=== PATIENT | male | born 1965 | race Caucasian/White ===

== ENCOUNTER 2016-06-04 22:47 | Emergency (ER) | payer OTHER ==
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
[2016-06-04 23:16] VITALS: BP 128/78; PULSE 72; TEMP 98.3; BMI 35.9
== END 2016-06-04 23:22 | disposition home or self-care (01) ==
LOC: FER 22:47
DX: S00.83XA Contusion of other part of head, initial encounter (principal); W50.0XXA Accidental hit or strike by another person, initial encounter; Y93.89 Activity, other specified; Y92.159 Unspecified place in reform school as the place of occurrence of the external cause; Y99.0 Civilian activity done for income or pay
CPT/HCPCS: 99281-25

== ENCOUNTER 2016-12-11 22:13 | Emergency (ER) | payer OTHER ==
[2016-12-11 22:21] VITALS: BP 127/91; PULSE 76; TEMP 98.7; BMI 32.1
[2016-12-11] MEDS ORDERED: IBUPROFEN 600 MG TABLET (FP) PO ONE ×2 (22:25→22:31)
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
== END 2016-12-11 22:44 | disposition home or self-care (01) ==
LOC: FER 22:13
DX: S89.91XA Unspecified injury of right lower leg, initial encounter (principal); X58.XXXA Exposure to other specified factors, initial encounter; Y92.159 Unspecified place in reform school as the place of occurrence of the external cause; Y99.0 Civilian activity done for income or pay
CPT/HCPCS: 73562-TC-RT; 99281-25

== ENCOUNTER 2017-06-05 14:59 | Emergency (ER) | payer SELFPAY ==
[2017-06-05 15:49] VITALS: BP 104/68; PULSE 67; TEMP 98; BMI 31.1
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
== END 2017-06-05 16:56 | disposition home or self-care (01) ==
LOC: FER 14:59
DX: M54.9 Dorsalgia, unspecified (principal); Y04.2XXA Assault by strike against or bumped into by another person, initial encounter; Y93.89 Activity, other specified; Y92.159 Unspecified place in reform school as the place of occurrence of the external cause; Y99.0 Civilian activity done for income or pay; E07.9 Disorder of thyroid, unspecified
CPT/HCPCS: 72050-TC-FY; 99282-25

== ENCOUNTER 2017-06-12 11:23 | Emergency (ER) | payer OTHER ==
[2017-06-12] MEDS ORDERED: IBUPROFEN 400 MG TABLET (FP) PO ONE ×2 (11:53→11:57)
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
[2017-06-12] MEDS ORDERED: LIDOCAINE HCL 1%, 10 MG/ML (20ML VIAL) ONE (12:25)
[2017-06-12 12:32] VITALS: BP 128/86; PULSE 105; TEMP 98.5; BMI 32.0
== END 2017-06-12 13:27 | disposition home or self-care (01) ==
LOC: FER 11:23
PROC: 0RSXXZZ Reposition Left Finger Phalangeal Joint, External Approach (ICD-10-PCS; principal; 2017-06-12)
DX: S63.257A Unspecified dislocation of left little finger, initial encounter (principal); X58.XXXA Exposure to other specified factors, initial encounter; Y93.89 Activity, other specified; Y92.9 Unspecified place or not applicable
CPT/HCPCS: 73140-TC-LT-FY; 99281-25

== ENCOUNTER 2017-07-08 08:51 | Emergency (ER) | payer OTHER ==
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
[2017-07-08] MEDS ORDERED: IBUPROFEN 400 MG TABLET (FP) PO ONE ×2 (09:04→09:09)
[2017-07-08 09:06] VITALS: BP 124/77; PULSE 65; TEMP 98.3; BMI 32.1
== END 2017-07-08 09:51 | disposition home or self-care (01) ==
LOC: FER 08:51
PROC: 2W3KX1Z Immobilization of Left Finger using Splint (ICD-10-PCS; principal; 2017-07-08)
DX: S61.237A Puncture wound without foreign body of left little finger without damage to nail, initial encounter (principal); W22.8XXA Striking against or struck by other objects, initial encounter; Y93.89 Activity, other specified; Y92.219 Unspecified school as the place of occurrence of the external cause; Y99.0 Civilian activity done for income or pay; E07.9 Disorder of thyroid, unspecified
CPT/HCPCS: 73140-TC-LT-FY; 99282-25

== ENCOUNTER 2017-10-24 08:57 | Emergency (ER) | payer OTHER ==
[2017-10-24 09:00] VITALS: BP 116/70; PULSE 63; TEMP 98.6; BMI 32.1
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
== END 2017-10-24 10:40 | disposition home or self-care (01) ==
LOC: FER 08:57
DX: M54.9 Dorsalgia, unspecified (principal); E07.9 Disorder of thyroid, unspecified; X58.XXXA Exposure to other specified factors, initial encounter; Y93.89 Activity, other specified; Y92.159 Unspecified place in reform school as the place of occurrence of the external cause; Y99.0 Civilian activity done for income or pay
CPT/HCPCS: 71101-TC-FY; 99282-25

== ENCOUNTER 2017-11-27 10:15 | Emergency (ER) | payer OTHER ==
[2017-11-27 10:27] VITALS: BP 112/71; PULSE 66; TEMP 98.8; BMI 32.3
--- NOTE | 2017-11-27 10:54 | PDOC ---
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 There is pain at the PIP joint. He has a history of prior dislocations of this joint. Review of systems: No other injuries. No distal numbness tingling weakness, or limited range of motion. Past medical history, social history, family history noncontributory Physical exam: Alert and oriented no acute distress cooperative Left fifth finger: There is mild diffuse swelling and tenderness of the PIP joint. There is no deformity suggestive of a dislocation. There is no tenderness or deformity of the MCP J or DIPJ. There is full extension and flexion of the PIP joint. Capillary refill intact. No distal sensory deficits Impression: Sprain, rule out avulsion Plan: X-ray and further orthopedic management depending on results Past History - Past Medical History Allergies/Adverse Reactions: Allergies Allergy/AdvReac Type Severity Reaction Status Date / Time No Known Allergies Allergy Verified 11/27/17 10:20 Home Medications: Ambulatory Orders NK [No Known Home Medication] 07/08/17 Anemia: No Asthma: No Cancer: No Cardiac Disorders: No CVA: No COPD: No CHF: No Dementia: No Diabetes: No GI Disorders: No Disorders: No HTN: No Hypercholesterolemia: No Liver Disease: No Seizures: No Thyroid Disease: Yes - Surgical History Abdominal Surgery: No (CHILDHOOD HERNIA) Appendectomy: No Cardiac Surgery: No Cholecystectomy: No Lung Surgery: No Neurologic Surgery: No Orthopedic Surgery: Yes (LEFT KNEE ARTHROSCOPY) - Suicide/Smoking/Psychosocial Hx Smoking Status: No Smoking History: Never smoked Have you smoked in the past 12 months: No Number of Cigarettes Smoked Daily: 0 Cigars Per Day: 0 Hx Alcohol Use: Yes Drug/Substance Use Hx: No Substance Use Type: Alcohol *Physical Exam - Vital Signs Last Vital Signs Temp Pulse Resp BP Pulse Ox 98.8 F 66 18 112/71 98 11/27/17 10:16 11/27/17 10:16 11/27/17 10:16 11/27/17 10:16 11/27/17 10:16 Medical Decision Making - Medical Decision Making 11/27/17 11:41 X-ray: Mild soft tissue swelling, no dislocation, fracture, or avulsion. Finger splinted in position of function. No distal numbness tingling or pain after splinting. Good capillary refill. Good sensation Follow-up orthopedist 5-7 days if pain or swelling persists. *DC/Admit/Observation/Transfer Diagnosis at time of Disposition: Sprain, finger Qualifiers: Encounter type: initial encounter Finger: little finger Sprain of finger site: interphalangeal joint Laterality: left Qualified Code(s): S63.637A - Sprain of interphalangeal joint of left little finger, initial encounter - Discharge Dispostion Disposition: HOME Condition at time of disposition: Stable Decision to Admit order: No - Referrals - Patient Instructions Printed Discharge Instructions: DI for Finger Sprain Additional Instructions: Rest ice and Motrin and splint. See specialist if pain persists one-week - Post Discharge Activity Forms/Work/School Notes: Back to Work
== END 2017-11-27 11:55 | disposition home or self-care (01) ==
LOC: FER 10:15
PROC: 2W3KX1Z Immobilization of Left Finger using Splint (ICD-10-PCS; principal; 2017-11-27)
DX: S63.637A Sprain of interphalangeal joint of left little finger, initial encounter (principal); X58.XXXA Exposure to other specified factors, initial encounter; Y93.89 Activity, other specified; Y92.89 Other specified places as the place of occurrence of the external cause; Y99.0 Civilian activity done for income or pay
CPT/HCPCS: 73140-TC-LT-FY; 99281-25

== ENCOUNTER 2019-11-05 08:31 | Emergency (ER) | payer OTHER ==
[2019-11-05 08:34] VITALS: BP 130/81; PULSE 60; TEMP 98.9; BMI 32.3
[2019-11-05] MEDS ORDERED: IBUPROFEN 600 MG TABLET (FP) PO ONE ×2 (08:59→09:23)
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
== END 2019-11-05 10:18 ==
LOC: FER 08:31
DX: S49.91XA Unspecified injury of right shoulder and upper arm, initial encounter (principal)
CPT/HCPCS: 73030-TC-RT-FY; 99283-25

== ENCOUNTER 2020-08-30 12:01 | Emergency (ER) | payer OTHER ==
[2020-08-30] MEDS ORDERED: ACETAMINOPHEN 325 MG TABLET (FP) PO PRN (12:20)
[2020-08-30 12:21] VITALS: BP 119/72; PULSE 53; TEMP 99.4; BMI 31.5
[2020-08-30] MEDS ORDERED: ACETAMINOPHEN 325 MG TABLET (FP) ONE (12:24)
[2020-08-30] MEDS ORDERED: LIDOCAINE 5% TOPICAL PATCH TP ONE (13:26)
[2020-08-30] MEDS ORDERED: LIDOCAINE 5% TOPICAL PATCH ONE (13:37)
[2020-08-30] MEDS ORDERED: LIDOCAINE PATCH REMOVAL MC SCH (22:00)
== END 2020-08-30 13:53 | disposition home or self-care (01) ==
LOC: FER 12:01
DX: R07.81 Pleurodynia (principal)
CPT/HCPCS: 71046-TC-FY; 71101-TC-LT-FY; 99284-25

== ENCOUNTER 2021-01-06 09:00 | Emergency (ER) | payer OTHER ==
[2021-01-06 09:11] VITALS: BP 135/73; PULSE 67; TEMP 97.9; BMI 31.5
[2021-01-06] MEDS ORDERED: IBUPROFEN 600 MG TABLET (FP) PO ONE ×2 (09:24→09:34)
== END 2021-01-06 10:15 | disposition home or self-care (01) ==
LOC: FER 09:00
DX: M25.522 Pain in left elbow (principal); M25.511 Pain in right shoulder
CPT/HCPCS: 73000-TC-RT-FY; 73030-TC-RT-FY; 73070-TC-LT-FY; 99284-25

== ENCOUNTER 2021-08-01 10:46 | Emergency (ER) | payer OTHER ==
[2021-08-01 11:13] VITALS: BP 129/77; PULSE 77; TEMP 98.3; BMI 24.3
== END 2021-08-01 13:06 | disposition home or self-care (01) ==
LOC: FER 10:46
DX: S09.90XA Unspecified injury of head, initial encounter (principal); S60.519A Abrasion of unspecified hand, initial encounter; W22.09XA Striking against other stationary object, initial encounter
CPT/HCPCS: 70450-TC; 99284-25

== ENCOUNTER 2024-07-23 15:31 | Emergency (ER) | payer OTHER ==
[2024-07-23 15:42] VITALS: BP 124/71; PULSE 57; RESP 15; TEMP 98.8; BMI 32.1
[2024-07-23] MEDS: IBUPROFEN 400 MG TABLET (FP) PO ONE (17:15)
== END 2024-07-23 17:09 | disposition home or self-care (01) ==
LOC: FER 15:31
DX: M25.561 Pain in right knee (principal); R51.9 Headache, unspecified; Y04.0XXA Assault by unarmed brawl or fight, initial encounter
CPT/HCPCS: 73562-TC-RT-FY; 99283-25